=== PATIENT | male | born 2000 | race Caucasian/White ===

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

== ENCOUNTER 2020-07-08 23:31 | Emergency (ER) | payer OTHER ==
[2020-07-08 23:41] VITALS: BP 150/75; TEMP 98.2
--- NOTE | 2020-07-09 00:03 | ED ---
General Adult HPI - General Chief complaint: Chest Pain Stated complaint: [facility] Clearance Time Seen by Provider: 07/08/20 23:45 Source: police Mode of arrival: wheelchair Limitations: no limitations - History of Present Illness Initial comments: Patient is a 20-year-old male presenting to the emergency department, currently in police custody for correction clearance. Patient was just arrested prior to arrival, fighting with officers, and then told them he had chest pain. She has no prior history of cardiac events. He states he takes Adderall and has been for over a year. Denies any recent fever or chills, no shortness of breath. No abdominal pain, no nausea or vomiting. He has no further complaints. Denies any suicidal thoughts. - Related Data Home Medications Medication Instructions Recorded Confirmed Ibuprofen [Motrin Ib] 400 mg PO Q6H PRN 05/02/18 05/02/18 Previous Rx's Medication Instructions Recorded Ondansetron [Zofran ODT] 4 mg PO Q8HR #12 tab 05/02/18 Allergies Allergy/AdvReac Type Severity Reaction Status Date / Time No Known Allergies Allergy Verified 07/08/20 23:41 Review of Systems ROS Statement: Those systems with pertinent positive or pertinent negative responses have been documented in the HPI. ROS Other: All systems not noted in ROS Statement are negative. Past Medical History Past Medical History: No Reported History History of Any Multi-Drug Resistant Organisms: None Reported Past Surgical History: Hernia Repair Past Psychological History: ADD/ADHD Smoking Status: Current some day smoker Past Alcohol Use History: None Reported, Rare Past Drug Use History: Marijuana General Exam - General Exam Comments Initial Comments: GENERAL: Patient is well-developed and well-nourished. Patient is nontoxic and in no acute distress, appears anxious. HEAD: Atraumatic, normocephalic. EYES: Pupils equal round and reactive to light, extraocular movements intact, sclera anicteric, conjunctiva are normal. Eyelids were unremarkable. ENT: TMs normal, nares patent, oropharynx clear without exudates. Moist mucous membranes. NECK: Normal range of motion, supple without lymphadenopathy or JVD. LUNGS: Unlabored respirations. Breath sounds clear to auscultation bilaterally and equal. No wheezes rales or rhonchi. HEART: Tachycardia rate and rhythm without murmurs, rubs or gallops. ABDOMEN: Soft, nontender, normoactive bowel sounds. No guarding, no rebound. No masses appreciated. : Deferred MUSCULOSKELETAL: Normal extremities with adequate strength and normal range of motion, no pitting or edema. No clubbing or cyanosis. NEUROLOGICAL: Patient is alert and oriented x 3. Motor and sensory are also intact. Cranial nerves II through XII grossly intact. Symmetrical smile. Normal speech, normal gait. PSYCH: Normal mood, normal affect. SKIN: Warm, Dry, normal turgor,. Patient has a few minor abrasions on his bilateral elbows. Limitations: no limitations Course Vital Signs 07/08/20 07/08/20 07/09/20 23:34 23:54 00:16 Temperature 98.2 F Pulse Rate 101 H 119 H 110 H Respiratory 28 H 22 Rate Blood Pressure 150/75 O2 Sat by Pulse 97 99 Oximetry EKG Findings - EKG Comments: EKG Findings:: Sinus tachycardia otherwise a normal ECG, no signs of acute process. Ventricular rate 123, NV interval 112, QT 330. Medical Decision Making - Medical Decision Making Patient is a 20-year-old male here in police custody, requesting correction clearance. Patient was taken to police custody just prior to arrival,and then he stated he has chest pains, so they brought him to the ER. EKG shows sinus tachycardia otherwise normal EKG. He has no history of heart disease, no risk factors. No shortness of breath. Patient starts breathing heavy when you enter the room, but was observed on multiple occasions resting in no distress. Patient is stable for discharge. He is clear for correction. D/c in police custody. Case discussed with Dr. Noble. Disposition Clinical Impression: Atypical chest pain, Anxiety Disposition: OTHER INSTITUTION NOT DEFINED Condition: Stable Instructions (If sedation given, give patient instructions): Chest Pain (ED) Additional Instructions: Please return to the Emergency Department if symptoms worsen or any other concerns. Patient is clear for correction. Is patient prescribed a controlled substance at d/c from ED?: No Referrals: None,Stated [Primary Care Provider] - 1-2 days - Out of Hospital Transfer - Req. Specs Out of Hospital Transfer - Requested Specifics: Other Non-Acute (policy Custody, correction)
[2020-07-09 00:18] VITALS: PULSE 110; RESP 22
== END 2020-07-09 00:16 | disposition other institution (70) ==
LOC: EC 23:31
DX: R07.89 Other chest pain (principal); F41.9 Anxiety disorder, unspecified; S50.312A Abrasion of left elbow, initial encounter; S50.311A Abrasion of right elbow, initial encounter; R00.0 Tachycardia, unspecified; F17.200 Nicotine dependence, unspecified, uncomplicated; X58.XXXA Exposure to other specified factors, initial encounter
CPT/HCPCS: 93005; 99285